=== PATIENT | female | born 1945 | race Caucasian/White ===

== ENCOUNTER 2018-04-02 10:35 | Outpatient (CLI) | payer MEDICARE, BC | END 2018-04-02 10:36 | disposition home or self-care (01) | LOC: BICMAMMO 10:35 | PROVIDERS: ATTEND Family Medicine | DX: Z12.31 Encounter for screening mammogram for malignant neoplasm of breast (principal) | CPT/HCPCS: 77063; 77067 ==

== ENCOUNTER 2018-07-02 09:20 | Emergency (ER) | payer MEDICARE, BC ==
[2018-07-02 09:59] LABS: #Basophils 0.1 thou/uL (0.0-0.2); #Eosinphils 0.2 thou/uL (0.0-0.7); #Lymphocytes 1.4 thou/uL (1.20-3.40); #Monocytes 0.5 thou/uL (0.11-0.59); #Neutrophils 3.9 thou/uL (1.40-6.50); %Basophils 1.8 % (0.0-1.0); %Eosinophils 3.1 % (0.0-10.0); %Lymphocytes 23.6 % (21.0-51.0); %Monocytes 7.5 % (0.0-10.0); Mean Corpuscular HGB CONC 32.6 g/dL (32.0-36.0); Mean Corpuscular Hemoglobin 29.8 pg (27.0-31.0); Mean Corpuscular Volume 91.3 fL (78.0-98.0); Mean Platelet Volume 7.3 fL (7.4-10.4); Platelet Count 264 thou/uL (130-400); RBC Distribution Width 13.3 % (11.5-14.5); Red Blood Cell (RBC) Count 4.36 mill/uL (4.20-5.40); White Blood Cell (WBC) Count 6.1 thou/uL (4.8-10.8)
[2018-07-02] MEDS ORDERED: Digoxin 0.5 MG/2 ML AMP ONE (10:07)
[2018-07-02 10:24] LABS: Anion Gap 16 mmol/L (10-20); BUN (Urea Nitrogen) 8 mg/dL (9.8-20.1); Calc. Creatinine Clearance 0 mL/min (70-130); Calcium 10.2 mg/dL (7.8-10.44); Carbon Dioxide 25 mmol/L (23-31); Chloride 104 mmol/L (98-107); Estimated GFR-MDRD 78; Glucose 101 mg/dL (83-110); Potassium 3.5 mmol/L (3.5-5.1); Sodium 141 mmol/L (136-145)
--- NOTE | 2018-07-03 13:52 | EKG ---
Test Reason : A-FIB W/ RVR Blood Pressure : / mmHG Vent. Rate : 139 BPM Atrial Rate : 144 BPM P-R Int : 000 ms QRS Dur : 114 ms QT Int : 332 ms P-R-T Axes : 000 000 040 degrees QTc Int : 505 ms Atrial fibrillation with rapid ventricular response Possible Anterior infarct , age undetermined Abnormal ECG Confirmed by BELLA ZALDIVAR, EDIN ([id number]), science editor DONNIE JOHANSEN ([id number]) on 07/03/2018 1:51:52 PM Referred By: Confirmed By:EDIN BLANCO MD
== END 2018-07-02 12:05 | disposition home or self-care (01) ==
LOC: ERS 09:20
DX: I48.91 Unspecified atrial fibrillation (principal); I10 Essential (primary) hypertension; K21.9 Gastro-esophageal reflux disease without esophagitis; Z79.899 Other long term (current) drug therapy
CPT/HCPCS: 80048; 84443; 85025; 93005; 96374; J1160

== ENCOUNTER 2019-01-17 10:03 | Outpatient (CLI) | payer MEDICARE, BC ==
--- NOTE | 2019-01-17 11:20 | ULT ---
EXAM: Abdominal ultrasound complete: HISTORY: Abnormal weight loss COMPARISON: None FINDINGS: Slightly coarse liver echotexture. The gallbladder demonstrates no evidence for gallstones, wall thickening, or pericholecystic fluid. The common bile duct is Within normal limits. Visualized pancreas: Unremarkable. Visualized abdominal aorta: Unremarkable. Visualized IVC: Unremarkable. Visualized spleen: Unremarkable. Visualized kidneys: No evidence for hydronephrosis or solid or cystic mass. No mass, abscess, adenopathy, or abnormal fluid collection or other acute process. IMPRESSION: Minimally coarse liver echotexture. No other acute process.
== END 2019-01-17 10:04 | disposition home or self-care (01) ==
LOC: SCSULT 10:03
PROVIDERS: ATTEND Family Medicine
DX: R63.4 Abnormal weight loss (principal); Z80.0 Family history of malignant neoplasm of digestive organs; R93.2 Abnormal findings on diagnostic imaging of liver and biliary tract
CPT/HCPCS: 76700

== ENCOUNTER 2019-06-15 09:20 | Outpatient (CLI) | payer MEDICARE, BC ==
--- NOTE | 2019-06-15 10:15 | BD ---
EXAM: DEXA bone density examination HISTORY: 74-year-old postmenopausal female for screening COMPARISON: 03/04/2017 FINDINGS: L1--bone mineral density 0.990 g/sq cm; T score 0.0 L2--bone mineral density 1.037 g/sq cm; T score 0.1 L3--bone mineral density 1.030 g/sq cm; T score -0.5 L4--bone mineral density 1.005 g/sq cm; T score -0.5 Total L1-L4--bone mineral density 1.014 g/sq cm; T score -0.3 Left femoral neck--bone mineral density0.630; T score -2.0 Total proximal left femur--bone mineral density 0.768; T score -1.4 IMPRESSION: Osteopenia This patient has a 10 year WHO fracture risk of a major osteoporotic fracture of 20% and of a hip fracture of 9.2%. When compared to the prior examination, the bone density in the hip has increased 8.7% and the bone density in the spine has not changed significantly.
--- NOTE | 2019-06-15 10:16 | MMO ---
Bilateral MAMMO Bilat Screen [facility]. CLINICAL HISTORY: Patient is 74 years old and is seen for screening. The patient has the following family history of breast cancer: mother, malignant (generic). The patient has a history of Skin cancer at age 34. The patient has a history of left needle biopsy more than 10 years ago - benign and right needle biopsy more than 10 years ago - benign. VIEWS: The views performed were: bilateral craniocaudal with tomosynthesis and bilateral mediolateral oblique with tomosynthesis. FILMS COMPARED: The present examination has been compared to prior imaging studies performed at [facility] on 04/02/2018, and at [facility] on 04/13/2015, 05/15/2016 and 05/22/2016. This study has been interpreted with the assistance of computer-aided detection. MAMMOGRAM FINDINGS: The breasts are heterogeneously dense, which could obscure a lesion on mammography. Finding 1: There are stable benign appearing calcifications seen in both breasts. Finding 2: There are stable benign appearing densities seen in both breasts. Finding 3: There are stable biopsy clips seen in both breasts. There are no suspicious masses, suspicious calcifications, or new areas of architectural distortion. IMPRESSION: THERE IS NO MAMMOGRAPHIC EVIDENCE OF MALIGNANCY. A ROUTINE FOLLOW-UP MAMMOGRAM IN 1 YEAR IS RECOMMENDED. THE RESULTS OF THIS EXAM WERE SENT TO THE PATIENT. ACR BI-RADS Category 2 - Benign finding MAMMOGRAPHY NOTE: 1. A negative mammogram report should not delay a biopsy if a dominant of clinically suspicious mass is present. 2. Approximately 10% to 15% of breast cancers are not detected by mammography. 3. Adenosis and dense breasts may obscure an underlying neoplasm. Reported by: JOSEPH YOUSSEF MD Electonically Signed: [id number]
== END 2019-06-15 09:21 | disposition home or self-care (01) ==
LOC: BICMAMMO 09:20
PROVIDERS: ATTEND Family Medicine
DX: Z12.31 Encounter for screening mammogram for malignant neoplasm of breast (principal); Z13.820 Encounter for screening for osteoporosis; Z78.0 Asymptomatic menopausal state; Z80.3 Family history of malignant neoplasm of breast; M85.89 Other specified disorders of bone density and structure, multiple sites
CPT/HCPCS: 77063; 77067; 77080

== ENCOUNTER 2020-09-24 09:04 | Outpatient (CLI) | payer MEDICARE, BC | END 2020-09-24 09:05 | disposition home or self-care (01) | LOC: BICMAMMO 09:04 | PROVIDERS: ATTEND Family Medicine | DX: Z12.31 Encounter for screening mammogram for malignant neoplasm of breast (principal); Z91.89 Other specified personal risk factors, not elsewhere classified; Z85.828 Personal history of other malignant neoplasm of skin; Z80.3 Family history of malignant neoplasm of breast | CPT/HCPCS: 77063; 77067 ==

== ENCOUNTER 2021-06-28 07:37 | Inpatient (IN) | payer MEDICARE, BC ==
[2021-06-28 15:10] VITALS: BMI 19.5
[2021-06-28] MEDS ORDERED: Furosemide 40 MG/4 ML VIAL SLOW IVP SCH (15:15)
[2021-06-28 15:27] LABS: #Basophils 0.1 thou/uL (0.0-0.2); #Lymphocytes 1.3 thou/uL (1.20-3.40); #Monocytes 0.5 thou/uL (0.11-0.59); #Neutrophils 5.2 thou/uL (1.40-6.50); %Basophils 1.2 % (0.0-1.0); %Eosinophils 0.6 % (0.0-10.0); %Lymphocytes 17.8 % (21.0-51.0); %Monocytes 7.3 % (0.0-10.0); %Neutrophils 73.2 % (42.0-75.0); Mean Corpuscular HGB CONC 32.5 g/dL (32.0-36.0); Mean Corpuscular Hemoglobin 30.6 pg (27.0-31.0); Mean Corpuscular Volume 94.2 fL (78.0-98.0); Mean Platelet Volume 6.8 fL (7.4-10.4); Platelet Count 213 thou/uL (130-400); RBC Distribution Width 13.8 % (11.5-14.5); Red Blood Cell (RBC) Count 4.56 mill/uL (4.20-5.40); White Blood Cell (WBC) Count 7.1 thou/uL (4.8-10.8)
[2021-06-28 15:50] LABS: ALT (SGPT) 32 U/L (8-55); AST (SGOT) 43 U/L (5-34); Albumin 3.8 g/dL (3.4-4.8); Alkaline Phosphatase 63 U/L (40-110); Anion Gap 17 mmol/L (10-20); BUN (Urea Nitrogen) 21 mg/dL (9.8-20.1); Bilirubin, Total 1.6 mg/dL (0.2-1.2); Calc. Creatinine Clearance 44 mL/min (70-130); Calcium 9.5 mg/dL (7.8-10.44); Carbon Dioxide 18 mmol/L (23-31); Chloride 94 mmol/L (98-107); Globulin 2.5 g/dL (2.4-3.5); Glucose 113 mg/dL (83-110); Potassium 4.2 mmol/L (3.5-5.1); Protein, Total 6.3 g/dL (5.8-8.1); Sodium 125 mmol/L (136-145)
[2021-06-28] MEDS ORDERED: Acetaminophen 325 MG TAB PO PRN (16:19)
[2021-06-28] MEDS ORDERED: FLU VACC QS2021-22(65YR UP)/PF 240 MCG/0.7 ML SYRINGE IM ONE (16:30)
[2021-06-28] MEDS: Enoxaparin Sodium 60 MG/0.6 ML SYRINGE SC SCH (21:07)
[2021-06-28] MEDS: Rosuvastatin 5 MG TAB PO SCH (21:07)
[2021-06-29] MEDS: FLUoxetine HCl 10 MG CAP PO SCH (08:47)
[2021-06-29] MEDS: Enoxaparin Sodium 60 MG/0.6 ML SYRINGE SC SCH ×2 (08:47→20:32)
[2021-06-29] MEDS: Spironolactone 25 MG TAB PO SCH (08:47)
[2021-06-29] MEDS ORDERED: Losartan 25 MG TAB PO SCH (09:00)
[2021-06-29 13:56] LABS: SARS-CoV-2 PCR by NAA Not Detected (NotDetected)
[2021-06-29] MEDS: Rosuvastatin 5 MG TAB PO SCH (20:32)
[2021-06-30 05:23] LABS: Anion Gap 11 mmol/L (10-20); BUN (Urea Nitrogen) 18 mg/dL (9.8-20.1); Calc. Creatinine Clearance 47 mL/min (70-130); Calcium 8.5 mg/dL (7.8-10.44); Carbon Dioxide 27 mmol/L (23-31); Chloride 94 mmol/L (98-107); Glucose 92 mg/dL (83-110); Potassium 3.2 mmol/L (3.5-5.1); Sodium 129 mmol/L (136-145)
[2021-06-30] MEDS: Enoxaparin Sodium 60 MG/0.6 ML SYRINGE SC SCH ×2 (09:49→20:23)
[2021-06-30] MEDS: FLUoxetine HCl 10 MG CAP PO SCH (09:50)
[2021-06-30] MEDS: Spironolactone 25 MG TAB PO SCH (09:50)
[2021-06-30] MEDS: Potassium Chloride 20 MEQ TAB PO SCH (17:41)
[2021-06-30] MEDS: Rosuvastatin 5 MG TAB PO SCH (20:23)
[2021-07-01] MEDS ORDERED: Communication Order-Pharmacy FS SCH ×2 (00:01→09:15)
[2021-07-01 04:52] LABS: Anion Gap 14 mmol/L (10-20); BUN (Urea Nitrogen) 17 mg/dL (9.8-20.1); Calc. Creatinine Clearance 48 mL/min (70-130); Calcium 9.6 mg/dL (7.8-10.44); Carbon Dioxide 25 mmol/L (23-31); Chloride 97 mmol/L (98-107); Glucose 97 mg/dL (83-110); Potassium 3.2 mmol/L (3.5-5.1); Sodium 133 mmol/L (136-145)
[2021-07-01] MEDS ORDERED: Sodium Chloride 0.9% 1,000 ML IV SCH (06:00)
[2021-07-01] MEDS ORDERED: Furosemide 40 MG/4 ML VIAL SLOW IVP SCH ×2 (09:00→16:00)
[2021-07-01] MEDS ORDERED: Potassium Chloride 20 MEQ TAB PO SCH (09:15)
[2021-07-01] MEDS ORDERED: Enoxaparin Sodium 60 MG/0.6 ML SYRINGE SC SCH (09:30)
[2021-07-01] MEDS: Spironolactone 25 MG TAB PO SCH (09:43)
[2021-07-01] MEDS: FLUoxetine HCl 10 MG CAP PO SCH (09:43)
[2021-07-01] MEDS: Potassium Chloride 20 MEQ TAB PO SCH ×2 (09:47→17:09)
[2021-07-01] MEDS: Rosuvastatin 5 MG TAB PO SCH (21:14)
[2021-07-02 05:31] LABS: Anion Gap 15 mmol/L (10-20); BUN (Urea Nitrogen) 25 mg/dL (9.8-20.1); Calc. Creatinine Clearance 33 mL/min (70-130); Calcium 9.6 mg/dL (7.8-10.44); Carbon Dioxide 28 mmol/L (23-31); Chloride 94 mmol/L (98-107); Glucose 107 mg/dL (83-110); Potassium 3.9 mmol/L (3.5-5.1); Sodium 133 mmol/L (136-145)
[2021-07-02] MEDS ORDERED: Sodium Chloride 0.9% 1,000 ML IV SCH ×2 (06:00→08:00)
[2021-07-02] MEDS: Spironolactone 25 MG TAB PO SCH (06:17)
[2021-07-02] MEDS: FLUoxetine HCl 10 MG CAP PO SCH (06:17)
[2021-07-02] MEDS: Potassium Chloride 20 MEQ TAB PO SCH ×2 (06:17→17:34)
[2021-07-02] MEDS ORDERED: Lidocaine 1% (PF) 30 ML VIAL ONE (06:59)
[2021-07-02] MEDS ORDERED: Diltiazem 125 MG/25 ML ONE (09:10)
[2021-07-02] MEDS ORDERED: Iopamidol 370 76% 100 ML VIAL ONE (09:50)
[2021-07-02] MEDS ORDERED: Nitroglycerin 0.4 MG TAB (25 Tab Bottle) SL PRN (09:55)
[2021-07-02] MEDS ORDERED: Sodium Chloride 0.9% 200 ML IV PRN (09:55)
[2021-07-02] MEDS ORDERED: Digoxin 0.5 MG/2 ML AMP SLOW IVP SCH ×4 (17:00→21:00)
[2021-07-02] MEDS: Rosuvastatin 5 MG TAB PO SCH (21:11)
[2021-07-03 06:07] LABS: Anion Gap 11 mmol/L (10-20); BUN (Urea Nitrogen) 18 mg/dL (9.8-20.1); Calc. Creatinine Clearance 47 mL/min (70-130); Carbon Dioxide 27 mmol/L (23-31); Chloride 100 mmol/L (98-107); Glucose 88 mg/dL (83-110); Potassium 4.1 mmol/L (3.5-5.1); Sodium 134 mmol/L (136-145)
[2021-07-03] MEDS ORDERED: Spironolactone 25 MG TAB PO SCH (08:00)
[2021-07-03] MEDS: Potassium Chloride 20 MEQ TAB PO SCH (09:00)
[2021-07-03] MEDS ORDERED: Digoxin 0.125 MG TAB PO SCH (09:00)
[2021-07-03] MEDS: FLUoxetine HCl 10 MG CAP PO SCH (10:40)
[2021-07-03 16:02] VITALS: BP 116/79; TEMP 98
[2021-07-04] MEDS ORDERED: Aspirin 81 mg Enteric Coated Tablet PO SCH (09:00)
== END 2021-07-03 18:05 | disposition home or self-care (01) | DRG 286 ==
LOC: 2NO 14:50
PROVIDERS: ADMIT Internal Medicine Cardiovascular Disease; ATTEND Internal Medicine Cardiovascular Disease
PROC: 4A023N7 Measurement of Cardiac Sampling and Pressure, Left Heart, Percutaneous Approach (ICD-10-PCS; principal; 2021-07-02)
PROC: B2111ZZ Fluoroscopy of Multiple Coronary Arteries using Low Osmolar Contrast (ICD-10-PCS; 2021-07-02)
DX: I42.0 Dilated cardiomyopathy (principal); I50.23 Acute on chronic systolic (congestive) heart failure; E87.1 Hypo-osmolality and hyponatremia; I47.2 Ventricular tachycardia; I48.11 Longstanding persistent atrial fibrillation; Z20.822 Contact with and (suspected) exposure to COVID-19; E78.00 Pure hypercholesterolemia, unspecified; I25.10 Atherosclerotic heart disease of native coronary artery without angina pectoris; K21.9 Gastro-esophageal reflux disease without esophagitis; I08.1 Rheumatic disorders of both mitral and tricuspid valves; I48.0 Paroxysmal atrial fibrillation; I95.9 Hypotension, unspecified; E87.6 Hypokalemia; Z85.828 Personal history of other malignant neoplasm of skin; Z98.890 Other specified postprocedural states; Z88.5 Allergy status to narcotic agent; Z88.0 Allergy status to penicillin; Z79.899 Other long term (current) drug therapy; Z79.01 Long term (current) use of anticoagulants
CPT/HCPCS: 36415; 80048; 80053; 85025; 93458; 93798; J1160; J1650; J1940; J2001; J7050; Q9967; U0003; U0005

== ENCOUNTER 2021-11-18 04:37 | Observation (INO) | payer MEDICARE, BC ==
[2021-11-18 05:29] LABS: #Basophils 0.1 thou/uL (0.0-0.2); #Lymphocytes 0.9 thou/uL (1.20-3.40); #Monocytes 0.4 thou/uL (0.11-0.59); #Neutrophils 5.2 thou/uL (1.40-6.50); %Basophils 0.8 % (0.0-1.0); %Eosinophils 0.3 % (0.0-10.0); %Monocytes 6.6 % (0.0-10.0); %Neutrophils 78.3 % (42.0-75.0); Hemoglobin 11.8 g/dL (12.0-16.0); Mean Corpuscular HGB CONC 32.8 g/dL (32.0-36.0); Mean Corpuscular Volume 97.4 fL (78.0-98.0); Platelet Count 230 thou/uL (130-400); RBC Distribution Width 12.6 % (11.5-14.5); Red Blood Cell (RBC) Count 3.68 mill/uL (4.20-5.40); White Blood Cell (WBC) Count 6.7 thou/uL (4.8-10.8)
[2021-11-18 05:52] LABS: ALT (SGPT) 22 U/L (8-55); AST (SGOT) 46 U/L (5-34); Albumin 3.9 g/dL (3.4-4.8); Alkaline Phosphatase 59 U/L (40-110); Anion Gap 16 mmol/L (10-20); BUN (Urea Nitrogen) 23 mg/dL (9.8-20.1); Bilirubin, Total 1.3 mg/dL (0.2-1.2); Calc. Creatinine Clearance 0 mL/min (70-130); Calcium 8.9 mg/dL (7.8-10.44); Carbon Dioxide 20 mmol/L (23-31); Chloride 102 mmol/L (98-107); Globulin 2.5 g/dL (2.4-3.5); Glucose 122 mg/dL (83-110); Potassium 3.6 mmol/L (3.5-5.1); Protein, Total 6.4 g/dL (5.8-8.1); Sodium 134 mmol/L (136-145)
[2021-11-18] MEDS ORDERED: Aspirin Chewable 81 MG TAB ONE (06:03)
[2021-11-18] MEDS ORDERED: Furosemide 40 MG/4 ML VIAL ONE (06:03)
[2021-11-18 06:40] LABS: Magnesium 1.8 mg/dL (1.6-2.6)
[2021-11-18 06:44] LABS: CKMB 2.6 ng/mL (0-6.6)
[2021-11-18] MEDS ORDERED: Acetaminophen 650 MG Suppository PR PRN (07:22)
[2021-11-18] MEDS ORDERED: Acetaminophen 325 MG TAB PO PRN (07:22)
[2021-11-18] MEDS ORDERED: Metoprolol Tartrate 5 MG/5 ML VIAL IVP SCH (08:15)
[2021-11-18 08:44] LABS: Digoxin Less than 0.15 ng/mL (0.8-2.0)
[2021-11-18 08:47] VITALS: BMI 17.4
[2021-11-18 08:49] LABS: Troponin I 0.035 ng/mL (< 0.028)
[2021-11-18] MEDS ORDERED: Apixaban 5 MG TAB PO SCH ×2 (09:00→21:00)
[2021-11-18] MEDS ORDERED: Enoxaparin Sodium 40 MG/0.4 ML SYRINGE SC SCH (09:45)
[2021-11-18] MEDS ORDERED: Magnesium 2 GM/50 ML(in water) 2 GM in Premix Bag 1 BAG IVPB SCH (10:15)
[2021-11-18] MEDS ORDERED: Digoxin 0.5 MG/2 ML AMP SLOW IVP SCH (10:15)
[2021-11-18 11:41] LABS: Troponin I 0.037 ng/mL (< 0.028)
[2021-11-18 11:53] VITALS: BP 131/75; TEMP 97.4
[2021-11-18] MEDS ORDERED: Potassium Chloride 20 MEQ TAB PO SCH ×2 (12:00→14:00)
[2021-11-19] MEDS ORDERED: Spironolactone 25 MG TAB PO SCH (08:00)
[2021-11-19] MEDS ORDERED: FLUoxetine HCl 20 MG CAP PO SCH (09:00)
[2021-11-19] MEDS ORDERED: Digoxin 0.125 MG TAB PO SCH (09:00)
[2021-11-19] MEDS ORDERED: Aspirin 81 mg Enteric Coated Tablet PO SCH (09:00)
== END 2021-11-18 14:45 | disposition home or self-care (01) ==
LOC: ERS 04:37 → 2SW 06:20
PROVIDERS: ADMIT Internal Medicine; ATTEND Physician Assistant
DX: I48.20 Chronic atrial fibrillation, unspecified (principal); I42.0 Dilated cardiomyopathy; R77.8 Other specified abnormalities of plasma proteins; I25.10 Atherosclerotic heart disease of native coronary artery without angina pectoris; I11.0 Hypertensive heart disease with heart failure; I50.40 Unspecified combined systolic (congestive) and diastolic (congestive) heart failure; E78.00 Pure hypercholesterolemia, unspecified; E78.5 Hyperlipidemia, unspecified; I47.2 Ventricular tachycardia; Z79.01 Long term (current) use of anticoagulants; Z79.82 Long term (current) use of aspirin; Z79.899 Other long term (current) drug therapy; Z88.0 Allergy status to penicillin; Z88.5 Allergy status to narcotic agent; Z95.810 Presence of automatic (implantable) cardiac defibrillator
CPT/HCPCS: 36415; 71045; 80053; 80162; 82553; 83735; 83880; 84484; 85025; 93005; 96372; 96374; 96375; G0378; J1160; J1650; J1940; J3475

== ENCOUNTER 2022-01-11 05:20 | Inpatient (IN) | payer MEDICARE, BC ==
[2022-01-11] MEDS ORDERED: Acetaminophen 325 MG TAB PO PRN (10:46)
[2022-01-11 10:57] LABS: Troponin I 0.062 ng/mL (< 0.028)
[2022-01-11 11:29] LABS: Digoxin 0.15 ng/mL (0.8-2.0); Magnesium 1.7 mg/dL (1.6-2.6)
[2022-01-11] MEDS: cefTRIAXone\\ROCEPHIN 1 GM in Sodium Chloride 0.9% 100 ML IVPB SCH (13:05)
[2022-01-11 13:26] LABS: Lactic Acid 1.9 mmol/L (0.5-2.2)
[2022-01-11 14:03] LABS: Troponin I 0.066 ng/mL (< 0.028)
[2022-01-11] MEDS ORDERED: ALPRAZolam 0.25 MG TAB PO PRN (14:18)
[2022-01-11] MEDS ORDERED: Lorazepam 2 MG/ML VIAL SLOW IVP SCH (16:18)
[2022-01-11] MEDS ORDERED: Metoprolol Tartrate 25 MG TAB PO SCH (17:45)
[2022-01-11] MEDS: Donepezil HCl 5 MG TAB PO SCH (21:36)
[2022-01-11] MEDS: Apixaban 5 MG TAB PO SCH (21:36)
[2022-01-11] MEDS: Rosuvastatin 10 MG TAB PO SCH (21:36)
[2022-01-12 04:50] LABS: #Basophils 0.1 thou/uL (0.0-0.2); #Eosinphils 0.2 thou/uL (0.0-0.7); #Lymphocytes 1.7 thou/uL (1.20-3.40); #Monocytes 0.7 thou/uL (0.11-0.59); #Neutrophils 5.6 thou/uL (1.40-6.50); %Basophils 1.2 % (0.0-1.0); %Eosinophils 2.1 % (0.0-10.0); %Neutrophils 67.7 % (42.0-75.0); Hemoglobin 13.7 g/dL (12.0-16.0); Mean Corpuscular HGB CONC 32.2 g/dL (32.0-36.0); Mean Corpuscular Hemoglobin 30.3 pg (27.0-31.0); Mean Corpuscular Volume 94.2 fL (78.0-98.0); Mean Platelet Volume 7.5 fL (7.4-10.4); Platelet Count 172 thou/uL (130-400); RBC Distribution Width 13.5 % (11.5-14.5); Red Blood Cell (RBC) Count 4.53 mill/uL (4.20-5.40); White Blood Cell (WBC) Count 8.2 thou/uL (4.8-10.8)
[2022-01-12 05:06] LABS: Anion Gap 17 mmol/L (10-20); BUN (Urea Nitrogen) 18 mg/dL (9.8-20.1); Calc. Creatinine Clearance 36 mL/min (70-130); Calcium 9.3 mg/dL (7.8-10.44); Carbon Dioxide 21 mmol/L (23-31); Chloride 99 mmol/L (98-107); Glucose 81 mg/dL (83-110); Potassium 3.9 mmol/L (3.5-5.1); Sodium 133 mmol/L (136-145)
[2022-01-12] MEDS ORDERED: FLUoxetine HCl 10 MG CAP PO SCH (09:00)
[2022-01-12] MEDS ORDERED: Furosemide 40 MG/4 ML VIAL SLOW IVP SCH (09:00)
[2022-01-12] MEDS ORDERED: Metoprolol Tartrate 25 MG TAB PO SCH (09:00)
[2022-01-12] MEDS ORDERED: Atorvastatin Calcium 10 MG TAB PO SCH (09:00)
[2022-01-12] MEDS: Aspirin 81 mg Enteric Coated Tablet PO SCH (09:35)
[2022-01-12] MEDS: Apixaban 5 MG TAB PO SCH ×2 (09:35→20:26)
[2022-01-12] MEDS: cefTRIAXone\\ROCEPHIN 1 GM in Sodium Chloride 0.9% 100 ML IVPB SCH (11:36)
[2022-01-12] MEDS ORDERED: Lorazepam 2 MG/ML VIAL SLOW IVP PRN (18:36)
[2022-01-12] MEDS: Metoprolol Tartrate 25 MG TAB PO SCH (20:26)
[2022-01-12] MEDS: Rosuvastatin 10 MG TAB PO SCH (20:26)
[2022-01-12] MEDS: Donepezil HCl 5 MG TAB PO SCH (20:26)
[2022-01-13 04:48] LABS: #Basophils 0.1 thou/uL (0.0-0.2); #Eosinphils 0.2 thou/uL (0.0-0.7); #Monocytes 0.6 thou/uL (0.11-0.59); #Neutrophils 4.3 thou/uL (1.40-6.50); %Basophils 1.2 % (0.0-1.0); %Eosinophils 2.8 % (0.0-10.0); %Lymphocytes 27.7 % (21.0-51.0); %Neutrophils 60.3 % (42.0-75.0); Hemoglobin 12.6 g/dL (12.0-16.0); Mean Corpuscular HGB CONC 32.6 g/dL (32.0-36.0); Mean Corpuscular Hemoglobin 30.7 pg (27.0-31.0); Mean Corpuscular Volume 94.2 fL (78.0-98.0); Mean Platelet Volume 7.9 fL (7.4-10.4); Platelet Count 154 thou/uL (130-400); RBC Distribution Width 13.7 % (11.5-14.5); Red Blood Cell (RBC) Count 4.12 mill/uL (4.20-5.40); White Blood Cell (WBC) Count 7.2 thou/uL (4.8-10.8)
[2022-01-13 05:09] LABS: Anion Gap 13 mmol/L (10-20); BUN (Urea Nitrogen) 23 mg/dL (9.8-20.1); Calc. Creatinine Clearance 33 mL/min (70-130); Calcium 8.4 mg/dL (7.8-10.44); Carbon Dioxide 23 mmol/L (23-31); Chloride 97 mmol/L (98-107); Glucose 94 mg/dL (83-110); Potassium 3.3 mmol/L (3.5-5.1); Sodium 130 mmol/L (136-145)
[2022-01-13] MEDS ORDERED: Potassium Chloride 20 MEQ in Premix Bag 1 BAG IVPB SCH ×2 (08:30→09:30)
[2022-01-13] MEDS: Metoprolol Tartrate 25 MG TAB PO SCH ×2 (09:42→21:19)
[2022-01-13] MEDS: Aspirin 81 mg Enteric Coated Tablet PO SCH (09:42)
[2022-01-13] MEDS: Apixaban 5 MG TAB PO SCH ×2 (09:42→21:19)
[2022-01-13 10:09] VITALS: BMI 17.9
[2022-01-13] MEDS: cefTRIAXone\\ROCEPHIN 1 GM in Sodium Chloride 0.9% 100 ML IVPB SCH (16:41)
[2022-01-13] MEDS: Donepezil HCl 5 MG TAB PO SCH (21:19)
[2022-01-13] MEDS: Rosuvastatin 10 MG TAB PO SCH (21:20)
[2022-01-14 04:21] LABS: #Basophils 0.1 thou/uL (0.0-0.2); #Eosinphils 0.1 thou/uL (0.0-0.7); #Lymphocytes 1.2 thou/uL (1.20-3.40); #Monocytes 0.5 thou/uL (0.11-0.59); #Neutrophils 5.5 thou/uL (1.40-6.50); %Basophils 1.4 % (0.0-1.0); %Eosinophils 1.2 % (0.0-10.0); %Lymphocytes 16.4 % (21.0-51.0); %Monocytes 6.2 % (0.0-10.0); Hemoglobin 13.2 g/dL (12.0-16.0); Mean Corpuscular HGB CONC 32.3 g/dL (32.0-36.0); Mean Corpuscular Hemoglobin 30.6 pg (27.0-31.0); Mean Corpuscular Volume 94.6 fL (78.0-98.0); Mean Platelet Volume 7.5 fL (7.4-10.4); Platelet Count 158 thou/uL (130-400); RBC Distribution Width 13.8 % (11.5-14.5); White Blood Cell (WBC) Count 7.3 thou/uL (4.8-10.8)
[2022-01-14 04:43] LABS: ALT (SGPT) 49 U/L (8-55); AST (SGOT) 47 U/L (5-34); Albumin 3.4 g/dL (3.4-4.8); Alkaline Phosphatase 66 U/L (40-110); Anion Gap 18 mmol/L (10-20); BUN (Urea Nitrogen) 20 mg/dL (9.8-20.1); Bilirubin, Total 0.8 mg/dL (0.2-1.2); Calc. Creatinine Clearance 42 mL/min (70-130); Calcium 8.6 mg/dL (7.8-10.44); Carbon Dioxide 19 mmol/L (23-31); Chloride 95 mmol/L (98-107); Globulin 2.2 g/dL (2.4-3.5); Glucose 114 mg/dL (83-110); Magnesium 1.5 mg/dL (1.6-2.6); Potassium 3.6 mmol/L (3.5-5.1); Protein, Total 5.6 g/dL (5.8-8.1); Sodium 128 mmol/L (136-145)
[2022-01-14] MEDS: Apixaban 5 MG TAB PO SCH ×2 (09:34→20:48)
[2022-01-14] MEDS: Aspirin 81 mg Enteric Coated Tablet PO SCH (09:35)
[2022-01-14] MEDS: Metoprolol Tartrate 25 MG TAB PO SCH (09:36)
[2022-01-14] MEDS: Magnesium 2 GM/50 ML(in water) 2 GM in Premix Bag 1 BAG IVPB SCH ×2 (09:38→11:06)
[2022-01-14] MEDS ORDERED: Digoxin 0.5 MG/2 ML AMP SLOW IVP SCH ×2 (17:45→20:30)
[2022-01-14] MEDS: Rosuvastatin 10 MG TAB PO SCH (20:48)
[2022-01-14] MEDS: Donepezil HCl 5 MG TAB PO SCH (20:49)
[2022-01-15 04:10] LABS: #Basophils 0.1 thou/uL (0.0-0.2); #Eosinphils 0.2 thou/uL (0.0-0.7); #Lymphocytes 1.1 thou/uL (1.20-3.40); #Monocytes 0.4 thou/uL (0.11-0.59); #Neutrophils 4.6 thou/uL (1.40-6.50); %Basophils 0.9 % (0.0-1.0); %Eosinophils 2.9 % (0.0-10.0); %Lymphocytes 17.2 % (21.0-51.0); %Monocytes 6.9 % (0.0-10.0); %Neutrophils 72.1 % (42.0-75.0); Hemoglobin 13.1 g/dL (12.0-16.0); Mean Corpuscular HGB CONC 32.2 g/dL (32.0-36.0); Mean Corpuscular Hemoglobin 30.4 pg (27.0-31.0); Mean Corpuscular Volume 94.5 fL (78.0-98.0); Mean Platelet Volume 7.9 fL (7.4-10.4); Platelet Count 161 thou/uL (130-400); Red Blood Cell (RBC) Count 4.29 mill/uL (4.20-5.40); White Blood Cell (WBC) Count 6.4 thou/uL (4.8-10.8)
[2022-01-15 04:30] LABS: ALT (SGPT) 59 U/L (8-55); AST (SGOT) 59 U/L (5-34); Albumin 3.3 g/dL (3.4-4.8); Alkaline Phosphatase 69 U/L (40-110); Anion Gap 15 mmol/L (10-20); BUN (Urea Nitrogen) 16 mg/dL (9.8-20.1); Calc. Creatinine Clearance 47 mL/min (70-130); Calcium 8.5 mg/dL (7.8-10.44); Carbon Dioxide 23 mmol/L (23-31); Chloride 95 mmol/L (98-107); Estimated GFR 82; Globulin 2.3 g/dL (2.4-3.5); Glucose 96 mg/dL (83-110); Magnesium 2.1 mg/dL (1.6-2.6); Potassium 3.3 mmol/L (3.5-5.1); Protein, Total 5.6 g/dL (5.8-8.1); Sodium 130 mmol/L (136-145)
[2022-01-15] MEDS: Aspirin 81 mg Enteric Coated Tablet PO SCH (08:19)
[2022-01-15] MEDS: Apixaban 5 MG TAB PO SCH (08:19)
[2022-01-15] MEDS ORDERED: Digoxin 0.125 MG TAB PO SCH (09:00)
[2022-01-15] MEDS ORDERED: Regadenoson 0.4 MG/5 ML SYRINGE ONE (11:23)
[2022-01-15] MEDS ORDERED: Potassium Chloride 20 MEQ TAB PO SCH (13:00)
[2022-01-15] MEDS ORDERED: Spironolactone 25 MG TAB PO SCH (13:15)
[2022-01-15 16:45] VITALS: BP 103/64; TEMP 97.5
[2022-01-16] MEDS ORDERED: Spironolactone 25 MG TAB PO SCH (08:00)
== END 2022-01-15 18:42 | disposition home or self-care (01) | DRG 308 ==
LOC: 2NO 07:17
PROVIDERS: ADMIT Student in an Organized Health Care Education/Training Program; ATTEND Hospitalist
DX: I48.19 Other persistent atrial fibrillation (principal); I50.43 Acute on chronic combined systolic (congestive) and diastolic (congestive) heart failure; E87.1 Hypo-osmolality and hyponatremia; N39.0 Urinary tract infection, site not specified; I11.0 Hypertensive heart disease with heart failure; K21.9 Gastro-esophageal reflux disease without esophagitis; E78.5 Hyperlipidemia, unspecified; I42.9 Cardiomyopathy, unspecified; E78.00 Pure hypercholesterolemia, unspecified; R74.02 Elevation of levels of lactic acid dehydrogenase [LDH]; E87.6 Hypokalemia; I25.10 Atherosclerotic heart disease of native coronary artery without angina pectoris; I95.9 Hypotension, unspecified; Z60.2 Problems related to living alone; Z95.810 Presence of automatic (implantable) cardiac defibrillator; Z88.0 Allergy status to penicillin; Z79.899 Other long term (current) drug therapy; Z88.5 Allergy status to narcotic agent; Z79.82 Long term (current) use of aspirin; Z79.01 Long term (current) use of anticoagulants; Z95.1 Presence of aortocoronary bypass graft; Z98.891 History of uterine scar from previous surgery; Z91.19 Patient's noncompliance with other medical treatment and regimen; Z98.890 Other specified postprocedural states; Z90.49 Acquired absence of other specified parts of digestive tract; Z85.828 Personal history of other malignant neoplasm of skin; Z80.8 Family history of malignant neoplasm of other organs or systems
CPT/HCPCS: 36415; 36416; 71045; 78452; 80048; 80053; 80162; 81003; 81015; 82550; 82553; 83605; 83735; 83880; 84443; 84484; 85025; 87040; 87086; 93005; 93017; 93306; 93798; 96374; 96375; A9503; J0696; J1160; J2060; J2785; J3475; J3480; J3490; U0002